=== PATIENT | female | born 1980 | race Caucasian/White ===

== ENCOUNTER 2016-09-19 11:59 | Emergency (ER) | payer SELFPAY ==
[~2016-09-19] VITALS: Ht 170.2 cm; Wt 50.0 kg
[~2016-09-19 11:59] MED LIST: CYCL-36 PO; LORT5TAB PO; METR-1 PO; XANA1TAB6 PO
[2016-09-19 12:03] VITALS: BP 114/84; PULSE 106; RESP 20; TEMP 97.5; O2SAT 98
--- NOTE | 2016-09-19 13:07 | PD ---
HPI Chief Complaint: Skin Problem Time Seen by Provider: 13:02 Travel History International Travel<30 days: No Contact w/Intl Traveler<30days: No Traveled to known affect area: No History of Present Illness HPI Patient is a 35-year-old female who presents emergency for evaluation of a rash. Patient denies any itching but states she sees little bugs jump off of her. She has a history of IV drug use, she reports using heroin, [place], crack. She has not used any IV drugs in 2 days per her report. She denies any fever, chills, nausea, vomiting, headache, chest pain or shortness of breath. PFSH Past Medical History Narrative Medical IV drug use Arthritis: No Anxiety: Yes Cancer: No Cardiovascular Problems: No Cerebrovascular Accident: No Endocrine: No Genitourinary: Yes Hepatitis: Yes (HEPATITIS C) Immune Disorder: No Musculoskeletal: Yes (BACK,AND NECK PAIN) Neurologic: No Psychiatric: Yes Reproductive: No Respiratory: No Migraines: Yes Seizures: No ?: Not : 2 Para: 2 Miscarriage: 0 : 0 Tubal Ligation: Yes Past Surgical History Abdominal Surgery: No Cardiac Surgery: No Ear Surgery: No Endocrine Surgery: No Eye Surgery: No Genitourinary Surgery: No Gynecologic Surgery: Yes (TUBAL LIGATIONS.) Oral Surgery: No Thoracic Surgery: No Social History Alcohol Use: No Tobacco Use: Yes (LESS THAN A PACK A DAY) Substance Use: Yes Allergies-Medications (Allergen,Severity, Reaction): Coded Allergies: No Known Allergies (Verified , 09/19/16) Reported Meds & Prescriptions Reported Meds & Active Scripts Active Flagyl (Metronidazole) 500 Mg Tab 500 Mg PO Q8HR 10 Days Lortab 5/500 (Acetaminophen/Hydrocodone Bitart) 5 Mg/500 Mg Tab 1 Tab PO Q4HPRN FOR PAIN Flexeril (Cyclobenzaprine HCl) 10 Mg Tab 10 Mg PO TID Reported Xanax 1 mg (Alprazolam) 1 Mg Tab 1 Mg PO TID Review of Systems Except as stated in HPI: all other systems reviewed are Neg General / Constitutional: No: Fever, Chills HENT: No: Headaches Cardiovascular: No: Chest Pain or Discomfort Respiratory: No: Shortness of Breath Gastrointestinal: No: Nausea, Abdominal Pain Skin: Positive Lesions Physical Exam Narrative GENERAL: Well-nourished, well-developed patient. SKIN: Warm and dry. Track almanza noted to the volar aspects of bilateral wrists and bilateral AC joints. No erythema, fluctuance, warmth noted. HEAD: Normocephalic. EYES: No scleral icterus. No injection or drainage. NECK: Supple, trachea midline. No JVD or lymphadenopathy. CARDIOVASCULAR: Regular rate and rhythm without murmurs, gallops, or rubs. RESPIRATORY: Breath sounds equal bilaterally. No accessory muscle use. GASTROINTESTINAL: Abdomen soft, non-tender, nondistended. MUSCULOSKELETAL: No cyanosis, or edema. BACK: Nontender without obvious deformity. No CVA tenderness. Data Data Last Documented VS Vital Signs Date Time Temp Pulse Resp B/P Pulse Ox O2 Delivery O2 Flow Rate FiO2 09/19/16 12:03 97.5 106 20 114/84 98 Room Air [facility] Medical Decision Making Medical Screen Exam Complete: Yes Emergency Medical Condition: Yes Interpretation(s) Vital Signs Date Time Temp Pulse Resp B/P Pulse Ox O2 Delivery O2 Flow Rate FiO2 09/19/16 12:03 97.5 106 20 114/84 98 Room Air Differential Diagnosis Scabies versus bed bugs versus allergic reaction versus mood disorder versus other Narrative Course Patient is a 35-year-old female who admits to using IV drugs, presents to the emergency department for evaluation of what she considered to be a rash. Patient denies any itching or other physical complaints. She does report seeing little bugs jump off of her in the shower and when she wipes her face. Patient does have visible track almanza on the volar aspect of her wrists and in her elbows. There is no obvious sign of cellulitis, abscess, infestations. Patient was reassured at this time that her exam was benign. She was anxious on arrival concerned about the buttocks. Her heart rate was 106 initially, reassessed at 90 palpable. She was encouraged to continue to avoid IV drugs. She was encouraged to return to emergency department immediately for any new or worsening symptoms. A medical screening exam was performed: At the time of evaluation the presenting medical condition was determined not to be of an emergent nature. The patient was given the option of receiving additional care, but declined. Patient was given options for additional community resources from which to obtain care. The Patient Has Been advised to seek medical attention for their presenting complaint. The patient has been advised to return to the ER at any time if an emergent condition develops. Diagnosis Primary Impression: Encounter for medical screening examination Condition: Stable Yun Saucedo Sep 19, 2016 13:07
== END 2016-09-19 14:23 | disposition left against medical advice (07) ==
LOC: NEPB 11:59
DX: R21 Rash and other nonspecific skin eruption (principal); F17.210 Nicotine dependence, cigarettes, uncomplicated
CPT/HCPCS: 99281